=== PATIENT | male | born 1995 | race Caucasian/White ===

== ENCOUNTER 2023-04-04 11:01 | Emergency (ER) | payer SELFPAY ==
[2023-04-04 11:18] VITALS: BP 176/99; PULSE 79; RESP 16; TEMP 36.7; O2SAT 99
--- NOTE | 2023-04-04 11:35 | ED.ABDPAIN ---
HPI - Abdominal Pain General Chief Complaint: Abdominal Pain Stated Complaint: right side abdominal pain Source: patient, family and RN notes reviewed History of Present Illness HPI narrative: 27-year-old male presents to urgent care with complaints of vomiting, diarrhea, and epigastric pain. Patient states going on for last 2 days. Patient reports his pain waxes and wanes in intensity. Patient has not vomited today has kept fluids and some food down. Patient denies any known fevers, chest pain, shortness of breath, flank pain, or lower back pain. Denies any lower abdominal pain. Patient did take 1 Zofran yesterday with minimal relief. Related Data Allergies Allergy/AdvReac Type Severity Reaction Status Date / Time No Known Allergies Allergy Verified 04/04/23 11:22 Review of Systems Review of Systems: Pertinent positives and pertinent negatives per HPI. PMFSH Comments At the time of my signature, I reviewed and agree with the nursing past medical, surgical, social, and family history. There is no relevant family history pertinent to the patient complaint. Exam Narrative: GENERAL: This is a well-nourished, well-developed patient, in no apparent distress. HEAD: normocephalic, atraumatic. EYES: Sclera clear/white. Vision is grossly intact. EARS: External ears normal, auditory canals clear and without drainage. Hearing grossly intact. NOSE: External nose normal with no obvious nasal discharge, nares without redness, no rhinorrhea. THROAT: Mucous membranes moist. NECK: Neck supple, non-tender without lymphadenopathy, masses or thyromegaly. CARDIOVASCULAR: Regular rate and rhythm without murmurs, gallops, or rubs. RESPIRATORY: Clear to auscultation. Breath sounds equal bilaterally. No wheezes, rales, or rhonchi. GASTROINTESTINAL: Abdomen soft, nondistended. Bowel sounds are active. No hepato-splenomegaly, or palpable masses. No guarding. Slight tenderness to epigastric area. SKIN: warm, intact with no suspicious lesions or rash, good texture and turgor. NEURO: awake, alert, and oriented to person, place and time. There were no obvious focal neurologic abnormalities. Course Course Level of Care: Express Care Visit Vital Signs Vital signs: Vital Signs Temperature 98.0 F 04/04/23 11:18 Pulse Rate 79 04/04/23 11:18 Respiratory Rate 16 04/04/23 11:18 Blood Pressure 176/99 H 04/04/23 11:18 Pulse Oximetry 99 04/04/23 11:18 Oxygen Delivery Room Air 04/04/23 11:18 Temperature 98.0 F 04/04/23 11:18 Pulse Rate 79 04/04/23 11:18 Respiratory Rate 16 04/04/23 11:18 Blood Pressure 176/99 H 04/04/23 11:18 Pulse Oximetry 99 04/04/23 11:18 Oxygen Delivery Room Air 04/04/23 11:18 reviewed MDM - Abdominal Pain MDM Narrative Medical decision making narrative: You've been diagnosed with a viral illness that would not require antibiotics at this time. Take the Zofran ODT at home as directed for nausea and get plenty of fluids. You may take Imodium for diarrhea and the Bentyl for abdominal cramping. If you would like to eat food, you should follow the BRAT diet (bananas, rice, applesauce, and toast, or things of the like). If you develop any new or worsening symptoms, you should go to the emergency dept without hesitation. Follow up with your tin worker in 2-5 days. Differential Diagnosis Differential diagnosis: Likely gastroenteritis, small bowel obstruction and other ( Cholecystitis) Critical Care Time Critical Care Time Critical Care Time: No Discharge Plan Discharge Clinical Impression: Gastroenteritis Patient Disposition: Home, Self-Care Condition: Stable Instructions: Gastroenteritis (DC) Additional Instructions: You've been diagnosed with a viral illness that would not require antibiotics at this time. Take the Zofran ODT at home as directed for nausea and get plenty of fluids. You may take Imodium for diarrhea and the Bentyl for abdominal cr
== END 2023-04-04 11:40 | disposition home or self-care (01) ==
PROVIDERS: Emergency Provider Nurse Practitioner Family; PCP Emergency Medicine
DX: K21.9 Gastro-esophageal reflux disease without esophagitis (principal); J45.909 Unspecified asthma, uncomplicated; Z86.16 Personal history of COVID-19
CPT/HCPCS: 99213; G0463

== ENCOUNTER 2024-07-05 16:51 | Emergency (ER) | payer SELFPAY ==
--- NOTE | ~2024-07-05 | XR_ITS ---
EXAMINATION: XR chest 2V DATE: 07/05/2024 17:31 INDICATION: Cough and fever and shortness of breath. TECHNIQUE: Frontal and lateral views of the chest were obtained. COMPARISON: None. FINDINGS: There is no pneumonia, pleural effusion, or pneumothorax. The heart size is normal. IMPRESSION: 1. No acute cardiopulmonary disease. Reviewed, dictated and finalized at location A. ASSOCIATE
--- NOTE | 2024-07-05 16:54 | ED.URI ---
HPI - URI/Sore Throat General Chief Complaint: Upper Respiratory Infection Stated Complaint: cough,congestion Time Seen by Provider: 07/05/24 16:54 Source: patient Mode of arrival: ambulatory Limitations: no limitations History of Present Illness HPI Narrative: Mark is a 28-year-old male patient presenting to the clinic today with complaints of cough, congestion, shortness breath, and fever higher than 101. He reports his symptoms have been going on for 2 days. Family is ill as well. Daughters were diagnosed with ear infection and possible walking pneumonia. He is concerned that he may have pneumonia. Related Data Home Medications Medication Instructions Recorded Confirmed B 12 Vitamin 1 tab-cap PO DAILY 07/05/24 07/05/24 loratadine 10 mg tablet (Claritin) 10 mg PO DAILY 07/05/24 07/05/24 multivitamin 1 tablet PO DAILY 07/05/24 07/05/24 Allergies Allergy/AdvReac Type Severity Reaction Status Date / Time No Known Allergies Allergy Verified 07/05/24 17:03 Review of Systems Review of Systems: Pertinent positives per HPI. Patient denies any rash, headache, visual changes, dizziness, sore throat, shortness of breath, chest pain, palpitations, nausea, vomiting, diarrhea, constipation, abdominal pain, or any urinary issues. PMFSH Comments At the time of my signature, I reviewed and agree with the nursing past medical, surgical, social, and family history. There is no relevant family history pertinent to the patient complaint. Exam Narrative: General: Well-developed, well nourished, in no apparent distress Head: Normocephalic, atraumatic Eyes: Pupils equally round and reactive to light bilaterally, EOM intact, sclera and conjunctive clear, no discharge, lids normal Ears: TMs intact and clear, ear canals clear, no drainage, grossly hearing normal. Nose: Nares patent, clear nasal discharge, no inflammation, no sinus tenderness. Mouth: Oropharynx without lesions or masses, good dentition, MMM. Postnasal drip Neck: Supple, trachea midline, no enlargement of anterior or posterior cervical nodes, no thyroid masses or goiter palpable. Cardio: Regular rate and rhythm, s1 and s2 normal, no murmur appreciated. Resp: Clear to auscultation bilaterally anteriorly and posteriorly, no rhonchi, rales, wheezing or rubs Course Course Emergency Course: Portions of this record may have been created with voice recognition software. Level of Care: Express Care Visit Vital Signs Vital signs: Vital Signs Temperature 37.4 C 07/05/24 17:06 Pulse Rate 100 07/05/24 17:06 Respiratory Rate 16 07/05/24 17:06 Blood Pressure 186/99 H 07/05/24 17:06 Pulse Oximetry 97 07/05/24 17:06 Temperature 37.4 C 07/05/24 17:06 Pulse Rate 100 07/05/24 17:06 Respiratory Rate 16 07/05/24 17:06 Blood Pressure 186/99 H 07/05/24 17:06 Pulse Oximetry 97 07/05/24 17:06 Vital signs reviewed MDM - URI/Sore Throat MDM Narrative Medical decision making narrative: At the time of visit patient is resting comfortably on the exam table. Patient appears to be nontoxic. Labs: COVID and influenza testing was performed Diagnostics: Chest x-ray is negative for any sign of acute cardiopulmonary process Plan: I suspect patient has URI with cough and congestion. Prescription for prednisone and albuterol inhaler was sent to the pharmacy. Supportive measures were discussed with the patient and they voiced understanding discharge instructions and agrees to treatment plan. Return precautions reviewed Differential Diagnosis Differential diagnosis: Likely upper respiratory infection, otitis media, sinusitis, viral infection, bronchitis, influenza, pharyngitis and other (COVID) Lab Data Labs: Lab Results 07/05/24 Range/Units 17:29 POC Influenza A Ag Negative (Negative) POC Influenza B Ag Negative (Negative) POC SARS CoV-2 Ag Negative (Negative) Imaging Data Radiologist's impression: ITS Impressions Chest X-Ray 07/05/24 17:31 IMPRESSION: 1. No acute cardiopulmonary disease. Discharge Plan Discharge Clinical Impression: Upper respiratory infection with cough and congestion Patient Disposition: Home, Self-Care Condition: Stable Instructions: Antibiotic Form, Cold Symptoms (ED) Additional Instructions: Take prescription medications only as prescribed-albuterol inhaler and prednisone Increase fluids and stay well hydrated Tylenol/motrin for pain/fever Flonase and OTC antihistamines as directed Vicks vapor rub to open sinuses Sinus rinses for congestion Cepacol spray, cough drops, throat lozenges, warm tea with honey/lemon, gargle salt water to soothe throat BRAT diet for diarrhea Clear liquids x 24 hours then advance as tolerated for nausea/vomiting Go to the ED if you develop a worsening in your condition- high fever not controlled by Tylenol or Motrin, dehydration, weakness, lethargy, shortness of breath, or chest pain. Follow up with your PCP in 3-5 days if symptoms persist. Prescriptions: New prednisone 20 mg tablet 40 mg PO DAILY 5 Days Qty: 10 0RF albuterol sulfate 90 mcg/actuation HFA aerosol inhaler 2 puff inhalation Q4-6H PRN (Reason: shortness of breath or wheezing) 30 Days Qty: 8.5 0RF No Action multivitamin [Men's Multi-Vitamin] Tablet 1 tablet PO DAILY loratadine [Claritin] 10 mg Tablet 10 mg PO DAILY B 12 Vitamin 1 tab-cap PO DAILY Follow-up/Referrals: PHYSICIAN,FORGE SHOP SUPERVISOR [Primary Care Provider] - Stand Alone Forms: Work/School Release IP Time of Disposition: 17:46 Quality NIHSS Nursing Documentation ED NIHSS nursing documentation: reviewed/agree
[2024-07-05 17:06] VITALS: BP 186/99; PULSE 100; RESP 16; TEMP 37.4; O2SAT 97
[2024-07-05 17:31] LABS: EDCOVIDSCREEN Negative (Negative); EDINFLUASCREEN Negative (Negative); EDINFLUBSCREEN Negative (Negative)
== END 2024-07-05 17:52 | disposition home or self-care (01) ==
PROVIDERS: Emergency Provider Nurse Practitioner Family
DX: J06.9 Acute upper respiratory infection, unspecified (principal); Z79.899 Other long term (current) drug therapy; Z20.822 Contact with and (suspected) exposure to COVID-19
CPT/HCPCS: 71046; 87426; 87804; 99213; G0463

== ENCOUNTER 2024-07-10 18:25 | Emergency (ER) | payer SELFPAY ==
--- NOTE | ~2024-07-10 | XR_ITS ---
EXAMINATION: XR chest 2V DATE: 07/10/2024 19:06 INDICATION: Shortness of breath TECHNIQUE: PA and lateral views of the chest were obtained. COMPARISON: Chest radiograph dated 07/05/2024 FINDINGS: There are new interstitial and airspace opacities in the left lower lung zone which appears most prom inent at the lingula and to lesser degree the left lower lobe concerning for pneumonia. No pleural ef fusion or pneumothorax. The cardiomediastinal silhouette is normal. Visualized bones and soft tissues are unremarkable. IMPRESSION: 1. Opacities at the lingula and to lesser degree the left lower lobe which is concerning for pneumoni a. Reviewed, dictated and finalized at location A. RNAL CONTROL SPECIALIST IMPRESSION: 1. Opacities at the lingula and to lesser degree the left lower lobe which is c oncerning for pneumonia.
[2024-07-10 18:27] VITALS: BP 155/96; PULSE 106; RESP 18; TEMP 38; O2SAT 95
--- NOTE | 2024-07-10 18:33 | ECG_ITS ---
Test Date: 2024-07-10 18:40:22 Measurements Intervals [place] Rate: 100 P: 61 ND: 151 QRS: 42 QRSD: 94 T: 65 QT: 333 QTc: 430 Interpretive Statements SINUS TACHYCARDIA BASELINE ARTIFACT- I, II, AVR, AVL, AVF, V1 BORDERLINE ECG No previous ECG available for comparison Electronically Signed On 07-11-2024 07:22:24 MERCHANDISING EXECUTION MANAGER by Fantasma Rodriguez D.O.
--- NOTE | 2024-07-10 20:51 | ED.GENADULT ---
HPI - General Adult General Chief complaint: Upper Respiratory Infection Stated complaint: fever, cough, SOB Time Seen by Provider: 07/10/24 20:38 History of Present Illness HPI narrative: patient is a 28-year-old gentleman who presents emergency department with chief complaint of fever cough and shortness of breath patient reports he has had a fever up to 103 at home reports he has been taking TheraFlu. the patient reports that he has had a cough it has been productive reports that he is concerned that he may have pneumonia reports that his children had recently been sick with upper respiratory infections Related Data Home Medications Medication Instructions Recorded Confirmed B 12 Vitamin 1 tab-cap PO DAILY 07/05/24 07/05/24 loratadine 10 mg tablet (Claritin) 10 mg PO DAILY 07/05/24 07/05/24 multivitamin 1 tablet PO DAILY 07/05/24 07/05/24 Allergies Allergy/AdvReac Type Severity Reaction Status Date / Time No Known Allergies Allergy Verified 07/05/24 17:03 Review of Systems Review of Systems: A 10 system review of systems was completed on the patient and is negative except for what is stated in the HPI. Nursing and ancillary documentation was reviewed. Exam Narrative: GENERAL: Well-appearing, well-nourished, and in no acute distress. HEAD: Normocephalic, atraumatic. EYES: PERRLA and EOMI. ENT: Nares clear, no rhinorrhea or epistaxis. Mucous membranes moist. NECK: Supple. CHEST: Clear to auscultation. No respiratory distress. HEART: Regular rate and rhythm. No murmur heard. Normal peripheral pulses. ABDOMEN: Soft, nontender, nondistended, normal active bowel sounds. EXTREMITIES: Normal range of motion. No edema. SKIN: Warm, dry, no rash. NEURO: No focal deficits. Alert and oriented x3. PSYCH: Normal mood and affect. Course Vital Signs Vital signs: Vital Signs Temperature 38.0 C H 07/10/24 18: Pulse Rate 106 H 07/10/24 18: Respiratory Rate 18 07/10/24 18: Blood Pressure 155/96 H 07/10/24 18: Pulse Oximetry 95 07/10/24 18:27 Oxygen Delivery Room Air 07/10/24 18: Temperature 38.0 C H 07/10/24 18: Pulse Rate 106 H 07/10/24 18:27 Respiratory Rate 18 07/10/24 18:27 Blood Pressure 155/96 H 07/10/24 18:27 Pulse Oximetry 95 07/10/24 18:27 Oxygen Delivery Room Air 07/10/24 18:27 Medical Decision Making MDM Narrative Medical decision making narrative: differential diagnosis includes pneumonia, upper respiratory infection, viral illness chest x-ray showed evidence of left lower lobe infiltrate and left lingula concerning for pneumonia the patient be treated for community-acquired pneumonia given a prescription for Tessalon Perles and also given an inhaler. Vital Signs Vital Signs: Vital Signs Temperature 38.0 C H 07/10/24 18:27 Pulse Rate 106 H 07/10/24 18:27 Respiratory Rate 18 07/10/24 18:27 Blood Pressure 155/96 H 07/10/24 18:27 Pulse Oximetry 95 07/10/24 18:27 Oxygen Delivery Room Air 07/10/24 18:27 Temperature 38.0 C H 07/10/24 18:27 Pulse Rate 106 H 07/10/24 18:27 Respiratory Rate 18 07/10/24 18:27 Blood Pressure 155/96 H 07/10/24 18:27 Pulse Oximetry 95 07/10/24 18:27 Oxygen Delivery Room Air 07/10/24 18:27 Discharge Plan Discharge Clinical Impression: Left lower lobe pneumonia Patient Disposition: Home, Self-Care Condition: Stable Instructions: Antibiotic Form, Bacterial Pneumonia (ED) Prescriptions: New albuterol sulfate 90 mcg/actuation HFA aerosol inhaler 2 puff inhalation QID PRN (Reason: shortness of breath or wheezing) Qty: 8.5 0RF benzonatate 200 mg capsule 200 mg PO TID PRN (Reason: cough) Qty: 21 0RF cefdinir 300 mg capsule 300 mg PO Q12H 10 Days Qty: 20 0RF azithromycin [Zithromax Z-Marek] 250 mg tablet See Rx Instructions PO .COMPLEX Qty: 6 0RF Rx Instructions: For 250 mg dose pack: take 500 mg today (day 1), then 250 mg for 4 days (days 2-5) No Action multivitamin [Men's Multi-Vitamin] Tablet 1 tablet PO DAILY loratadine [Claritin] 10 mg Tablet 10 mg PO DAILY B 12 Vitamin 1 tab-cap PO DAILY prednisone 20 mg tablet 40 mg PO DAILY 5 Days Qty: 10 0RF albuterol sulfate 90 mcg/actuation HFA aerosol inhaler 2 puff inhalation Q4-6H PRN (Reason: shortness of breath or wheezing) 30 Days Qty: 8.5 0RF Follow-up/Referrals: Yamil Adair MD [Physician] - UNKNOWN,DOCTOR [Primary Care Provider] - Time of Disposition: 20:56
[2024-07-10] MEDS: CEFDINIR 300 MG CAPSULE PO (21:29)
[2024-07-10] MEDS: ACETAMINOPHEN 500 MG TABLET 1000 MG PO (21:30)
[2024-07-10] MEDS: AZITHROMYCIN 250 MG TABLET 500 MG PO (21:30)
== END 2024-07-10 21:47 | disposition home or self-care (01) ==
PROVIDERS: Emergency Provider Emergency Medicine
DX: J18.9 Pneumonia, unspecified organism (principal)
CPT/HCPCS: 71046; 93005; 99283; A9270

== ENCOUNTER 2025-08-10 11:14 | Emergency (ER) | payer OTHER, SELFPAY ==
[2025-08-10 11:59] VITALS: BP 173/112; PULSE 105; RESP 20; TEMP 39.3; O2SAT 97
--- NOTE | 2025-08-10 12:10 | ED.URI ---
HPI - URI/Sore Throat General Chief Complaint: Upper Respiratory Infection Stated Complaint: headache,nausea,fever, body aches Time Seen by Provider: 08/10/25 12:05 Source: patient Mode of arrival: ambulatory Limitations: no limitations History of Present Illness HPI Narrative: Mark is a 29-year-old male patient presenting to the clinic today with complaints of headache, nausea, sore throat fever, body aches, and cough x2 days. History of pneumonia in the past. States he does feel short of breath at times. Denies any chest pain currently. Has taken Tylenol for his symptoms. MD elicited complaint: sore throat and nasal congestion Related Data Home Medications ?Medication ?Instructions ?Recorded ?Confirmed ?Last Taken ?Type B 12 Vitamin 1 tab-cap PO DAILY 07/05/24 08/10/25 Unknown History loratadine 10 mg tablet (Claritin) 10 mg PO DAILY 07/05/24 08/10/25 Unknown History multivitamin 1 tablet PO DAILY 07/05/24 08/10/25 Unknown History Allergies Allergy/AdvReac Type Severity Reaction Status Date / Time No Known Allergies Allergy Verified 08/10/25 12:05 Review of Systems Review of Systems: Pertinent positives per HPI. Patient denies any rash, visual changes, dizziness, chest pain, palpitations, nausea, vomiting, diarrhea, constipation, abdominal pain, or any urinary issues. PMFSH Comments At the time of my signature, I reviewed and agree with the nursing past medical, surgical, social, and family history. There is no relevant family history pertinent to the patient complaint. Exam Narrative: General: Well-developed, well nourished, acutely ill. Head: Normocephalic, atraumatic Eyes: Pupils equally round and reactive to light bilaterally, EOM intact, sclera and conjunctive clear, no discharge, lids normal Ears: TMs intact and clear, ear canals clear, no drainage, grossly hearing normal. Nose: Nares patent, clear nasal discharge mild inflammation, no sinus tenderness. Mouth: Oral pharynx red without lesions or masses, good dentition, MMM. Postnasal Neck: Supple, trachea midline, no enlargement of anterior or posterior cervical nodes, no thyroid masses or goiter palpable. Cardio: Regular rate and rhythm, s1 and s2 normal, no murmur appreciated. Resp: Clear to auscultation bilaterally, no rhonchi, rales, wheezing or rubs Course Course Level of Care: Express Care Visit MDM MDM Narrative Medical decision making narrative: At the time of visit patient is resting comfortably on the exam table. Patient appears to be nontoxic. Complaints of headache, nausea, sore throat fever, body aches, and cough x2 days. History of pneumonia in the past. States he does feel short of breath at times. Denies any chest pain currently. Has taken Tylenol for his symptoms. On exam patient has bilateral TMs intact and clear, clear nasal drainage, mild anterior turbinate inflammation, oral pharynx red with postnasal drip, no cervical lymphadenopathy, lung sounds are clear, heart rates regular rate and rhythm. COVID, influenza, and strep test were ordered Labs: COVID, influenza, and strep test were performed. COVID and strep test were negative. Influenza a test was positive. Plan: Patient has influenza A. Prescription for Tamiflu was sent to the pharmacy. Work note was given. Supportive measures were discussed with the patient and they voiced understanding discharge instructions and agrees to treatment plan. Return precautions reviewed Differential Diagnosis Differential Diagnosis: Differential diagnostic considerations for upper respiratory infection include upper respiratory infection, croup, otitis media, sinusitis, viral infection, bronchitis, influenza, pharyngitis, strep, uvulitis. Discharge Plan Discharge Clinical Impression: Influenza A Patient Disposition: Home Condition: Stable Instructions: Antibiotic Form, Influenza (ED) Additional Instructions: Influenza A testing was positive in the clinic today. Take Tamiflu as prescribed Increase fluids and stay well hydrated May take Tylenol or motrin as directed on bottle for pain/fever May use Flonase 1 spray in each nare daily May take OTC antihistamines such as Zyrtec or Claritin daily as directed on bottle May apply Vicks vapor rub to chest to open sinuses Sinus rinses for congestion Cepacol spray, cough drops, throat lozenges, warm tea with honey/lemon, gargle salt water to soothe throat BRAT diet for diarrhea Clear liquids x 24 hours then advance as tolerated for nausea/vomiting Go to the ED if you develop a worsening in your condition- high fever not controlled by Tylenol or Motrin, dehydration, weakness, lethargy, shortness of breath, or chest pain. Follow up with your PCP in 3-5 days if symptoms persist. Patient Language: Dutch Prescriptions: New oseltamivir [Tamiflu] 75 mg capsule 75 mg PO Q12H 5 Days Qty: 10 0RF No Action multivitamin [Men's Multi-Vitamin] Tablet 1 tablet PO DAILY loratadine [Claritin] 10 mg Tablet 10 mg PO DAILY B 12 Vitamin 1 tab-cap PO DAILY prednisone 20 mg tablet 40 mg PO DAILY 5 Days Qty: 10 0RF albuterol sulfate 90 mcg/actuation HFA aerosol inhaler 2 puff inhalation Q4-6H PRN (Reason: shortness of breath or wheezing) 30 Days Qty: 8.5 0RF albuterol sulfate 90 mcg/actuation HFA aerosol inhaler 2 puff inhalation QID PRN (Reason: shortness of breath or wheezing) Qty: 8.5 0RF benzonatate 200 mg capsule 200 mg PO TID PRN (Reason: cough) Qty: 21 0RF cefdinir 300 mg capsule 300 mg PO Q12H 10 Days Qty: 20 0RF azithromycin [Zithromax Z-Marek] 250 mg tablet See Rx Instructions PO .COMPLEX Qty: 6 0RF Rx Instructions: For 250 mg dose pack: take 500 mg today (day 1), then 250 mg for 4 days (days 2-5) Follow-up/Referrals: PHYSICIAN,WINDSHIELD REPAIR TECHNICIAN [Primary Care Provider, Internal Medicine] Stand Alone Forms: Work/School Release IP Time of Disposition: 12:23 Quality NIHSS Nursing Documentation ED NIHSS nursing documentation: reviewed/agree
[2025-08-10 12:23] VITALS: TEMP 39.3
[2025-08-10] MEDS: IBUPROFEN 400 MG TABLET 800 MG PO (12:23)
[2025-08-10 12:40] LABS: EDCOVIDSCREEN Negative (Negative); EDINFLUASCREEN Positive (Negative); EDINFLUBSCREEN Negative (Negative)
--- NOTE | 2025-08-10 15:41 | PC.NURSE ---
patient stated that he was in the Er one year ago and his blood pressure was very high. they did an EKG and told him to follow up with his pcp about his blood pressure. he never did.
[2025-08-10 15:54] LABS: EDSTREPNEGPOS1 Negative (Negative)
== END 2025-08-10 12:30 | disposition home or self-care (01) ==
PROVIDERS: Emergency Provider Nurse Practitioner Family
DX: J10.1 Influenza due to other identified influenza virus with other respiratory manifestations (principal); Z20.822 Contact with and (suspected) exposure to COVID-19
CPT/HCPCS: 87081; 87426; 87804; 87880; 99213; A9270; G0463